=== PATIENT | female | born 1970 ===

== ENCOUNTER 2017-01-14 06:36 | Day surgery (SDC) | payer BC ==
[~2017-01-14] VITALS: Ht 175.3 cm; Wt 88.0 kg
[2017-01-14] VITALS (17 sets, daily range): BP systolic 112–150; BP diastolic 65–90; PULSE 66–104; RESP 12–74; Ht 175.3 cm; Wt 88.0 kg
[2017-01-14] MEDS ORDERED: ROCURONIUM 50 MG INJ ONE (07:00)
[2017-01-14] MEDS ORDERED: LIDOCAINE 2% (SDV) 5 ML INJ ONE (07:00)
[2017-01-14] MEDS ORDERED: IBUP800T25 PO (07:33)
[2017-01-14] MEDS ORDERED: TRAM50TA2 PO (07:33)
[2017-01-14] MEDS ORDERED: MELO-210 PO (07:33)
[2017-01-14] MEDS ORDERED: LISI40TA9 PO (07:33)
[2017-01-14] MEDS ORDERED: HYDR25TA6 PO (07:33)
[2017-01-14] MEDS ORDERED: BUPIVACAINE 0.5% (SDV) 30 ML INJ ONE (07:47)
[2017-01-14] MEDS ORDERED: DEXAMETHASONE 4 MG/ML 1 ML INJ ONE ×2 (07:48→08:15)
[2017-01-14] MEDS ORDERED: POVIDONE IODINE 10% 28.4 GM OINT ONE (07:48)
--- NOTE | 2017-01-14 08:01 | HPN ---
Date/Time of Note Date/Time of Note DATE: 01/14/17 TIME: 08:01 Interval H&P Admission Note Pt. seen H&P reviewed: No system changes CE NAVA DPM Jan 14, 2017 08:01
[2017-01-14] MEDS ORDERED: PROPOFOL 100 ML ONE (08:02)
[2017-01-14] MEDS ORDERED: FENTAnyl 50 MCG/ML VIAL ONE ×2 (08:04→09:25)
[2017-01-14] MEDS ORDERED: MIDAZOLAM 1 MG/ML 2 ML INJ ONE (08:07)
[2017-01-14] MEDS ORDERED: CLINDAMYCIN 900 MG/D5W (PMX) 50 ML IVPB ONE (08:14)
[2017-01-14] MEDS ORDERED: ONDANSETRON 4 MG INJ ONE (08:15)
[2017-01-14] MEDS ORDERED: KETOROLAC 30 MG INJ ONE ×2 (08:15→08:16)
[2017-01-14] MEDS ORDERED: ACETAMINOPHEN 1000MG/100ML IV 100 ML ONE (08:16)
[2017-01-14] MEDS ORDERED: POLYMYXIN/BACITRACIN 1L IRRIG IRR ONE (08:30)
[2017-01-14] MEDS ORDERED: PROPOFOL 20 ML ONE (09:24)
[2017-01-14] MEDS ORDERED: LABETALOL HCL 20MG INJ ONE (09:53)
[2017-01-14] MEDS ORDERED: HYDROmorphONE 2 MG/ML SYG ONE (10:08)
--- NOTE | 2017-01-14 10:22 | SIPON ---
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
[2017-01-14] MEDS ORDERED: OXYCODONE/ACETAMINOPHEN (5/325) TAB PO PRN ×2 (10:30)
[2017-01-14] MEDS ORDERED: HYDROmorphONE (0.2 MG/ML) 10ML SYG IV PRN ×3 (10:30)
[2017-01-14] MEDS ORDERED: METOCLOPRAMIDE 10 MG INJ IV PRN (10:30)
[2017-01-14] MEDS ORDERED: FENTAnyl 50 MCG/ML VIAL IV PRN ×3 (10:30)
[2017-01-14] MEDS ORDERED: DIPHENHYDRAMINE 50 MG INJ IV PRN (10:30)
[2017-01-14] MEDS ORDERED: EPHEDrine SULFATE 50 MG/5 ML SYG IV PRN (10:30)
[2017-01-14] MEDS ORDERED: MEPERIDINE 25 MG INJ IV PRN (10:30)
[2017-01-14] MEDS ORDERED: LABETALOL HCL 20MG INJ IV PRN (10:30)
[2017-01-14] MEDS ORDERED: hydrALAzine 20 MG INJ IV PRN (10:30)
[2017-01-14] MEDS ORDERED: ONDANSETRON 4 MG INJ IV PRN (10:30)
--- NOTE | 2017-01-14 14:06 | PREOPHP ---
DATE OF ADMISSION: 01/14/2017 HISTORY OF PRESENT ILLNESS: The patient is being admitted to the hospital for elective foot surgery. Palliative treatment, unsuccessful. The patient has been explained surgery, complications and alternatives and elected to have elective foot surgery. The patient has had previous surgery even many years ago. The pain is at the 1st metatarsophalangeal joint and the 2nd metatarsophalangeal joint. ALLERGIES: PENICILIN. MEDICATIONS: Taking medicine for blood pressure and takes Mobic for pain. REVIEW OF SYSTEMS: Negative heart, lung, liver, kidney, thyroid. Negative diabetes. SOCIAL HISTORY: Smoke 1 pack per day. Alcohol negative. See any other pertinent history and upper extremity physical exam by Dr. Phelan. PHYSICAL EXAMINATION: LOWER EXTREMITY: Physical exam shows a DP and PT, equal and regular +3. NEUROLOGIC: Negative for pathology. MUSCULOSKELETAL: X-ray HAV with bunion left foot. Deformed 2nd metatarsal phalangeal joint left foot. Hammer toe 2nd left foot. FINAL DIAGNOSES: 1. Hallux abductovalgus with bunion left foot. 2. Deformed 2nd and metatarsal phalangeal joint left foot. 3. Hammtertoe 2nd left foot. Dictated By: Arthur Boyd DPM /[email or web address] /Document#: [id number]
--- NOTE | 2017-01-14 14:24 | OPR ---
DATE OF OPERATION: 01/14/2017 PREOPERATIVE DIAGNOSES: 1. Hallux abductovalgus with bunion formation, left foot. 2. Deformed 2nd metatarsal phalangeal joint, left foot. 3. Hammer toe, 2nd toe, left foot. POSTOPERATIVE DIAGNOSES: 1. Hallux abductovalgus with bunion formation, left foot. 2. Deformed 2nd metatarsal phalangeal joint, left foot. 3. Hammer toe, 2nd toe, left foot. SURGERY: Osteotomy and bunionectomy with fixation 1st metatarsal, Darian osteotomy, proximal phalanx hallux and partial ostectomy 2nd metatarsal left foot, hammertoe correction, 2nd digit, left foot and application of EpiFix 1st met, left foot. SURGEON: Arthur Boyd DPM OPERATIVE PROCEDURE: The patient was brought to the surgical suite, placed in the supine position. The patient was under general anesthesia with pneumatic cuff on mid thigh. The patient had sterile prep and drape, with the findings consistent with the pre and postop diagnosis. The 1st incision was a dorsal longitudinal incision over the 1st metatarsophalangeal joint using sharp and blunt dissection. The incision was carried deep. The Bovie was used as necessary. A longitudinal capsulotomy was made and the 1st metatarsophalangeal joint was exposed. The head of the 1st metatarsal along its medial and dorsal aspects were freed and remodeled. The base of the proximal phalanx laterally was resected and then the attention was turned to the medial aspect of the 1st metatarsal were a horizontal V osteotomy was made going medial to lateral with the apex distal centered in the middle of the head of the 1st metatarsal and the rest of the V going proximal at 60 degrees to each other. The head was moved laterally, impacted upon the shaft. The overhang of the shaft was resected. The K-wire was placed across the osteotomy site and measured and a [employer] headless screw 2.5 mm x [address]. The K-wire was removed. The preop condition on the 1st metatarsal having been relieved. Next, attention was turned to the proximal phalanx where the Darian osteotomy was performed at the midshaft of the proximal phalanx with the apex going laterally and the base going medially. Approximately at its widest point 2.5 to 3 mm section was removed and then the distal aspect was impacted upon the proximal aspect and held into place using a right staple 8 x 8. The area was cleansed, rasped smooth and cleansed again. Preoperative condition having been corrected. The area was the 1st metatarsal had an application of EpiFix on it and then the coaptation using 3-0 Vicryl and was used to coaptate the subcutaneous tissue and the skin was coaptated using 5-0 Nylon. Next, attention was turned to the 2nd metatarsophalangeal joint where a longitudinal incision was made over the 2nd MP joint and the head of the 2nd metatarsal was freed of its attachment and the distal 8th of the head was excised at its surgical neck. The area was then cleansed, subcutaneously coaptated using 3-0 Vicryl and the skin coapted using 5-0 nylon. Then, attention was turned to the 2nd digit, which was a hammertoe and a longitudinal incision was made and the head of the proximal phalanx freed of its attachment, resected at its surgical neck. I then cleansed subcutaneously coaptated using 3-0 Vicryl. The skin was coaptated using 5-0 nylon. All incisions were injected with 0.5 percent Marcaine to prolong anesthesia and dressing of half-inch Steri-Strips, Betadine ointment, 4x4s impregnated with Betadine solution and Jose Enrique with an outer layer of Coban made into a semicompressive dressing. The patient tolerated surgery well and was returned to recovery room in satisfactory condition. There was minimal blood loss and no complications. Dictated By: Arthur Boyd DPM /[email or web address]/angel /Document#: [id number]
== END 2017-01-14 12:10 | disposition home or self-care (01) ==
LOC: SDS 06:36
PROVIDERS: ATTEND Podiatrist
DX: M20.12 Hallux valgus (acquired), left foot (principal); M20.42 Other hammer toe(s) (acquired), left foot
CPT/HCPCS: 28285; 28298; 88304; 88311; J0131; J1100; J1170; J1885; J2250; J2405; J3010; Z7512; Z7610